=== PATIENT | female | born 1990 | race Two or more races ===

== ENCOUNTER 2016-09-16 21:04 | Emergency (ER) | payer SELFPAY ==
[~2016-09-16 21:04] MED LIST: ADVAIR 1001 DISK W/D; ALBUTEROL17 GM; BACTRIM DS TAB1 EAC2 PO; BACTRIM DS TABL1 TAB; BACTRIM DS TABL1 TAB PO; BREAST PUMP MC; CIPRO500 M2 PO; CIPRO500 MG PO; CIPROFLOXACIN500 M3 PO; COMPAZINE10 M PO; COMPAZINE25 MG/SUPP PR; CYCLOBENZAPRINE5 M1 PO; DICLOFENAC POTA50 M1 PO; FLAGYL500 M1 PO; HYDROCODON-ACE1 EA16 PO; IBUPROFEN400 M1 PO; IRON1 TA1 PO; LEVAQUIN250 MG PO; LEVAQUIN750 M1 PO; LEVAQUIN750 MG; MOTRIN800 MG PO; NO HOME MEDICATION XX; NORCO 5-325 TA1 EACH PO; NORCO 5/325 TAB1 TAB PO; OXYCODONE/APAP PO; PERCOCET 5-3251 EACH PO; PRENACARE TABL1 EACH PO; PRENATAL1 TAB; PROMETHAZINE HC25 M3 PO; PYRIDIUM200 MG; PYRIDIUM200 MG PO; TYLENOL W/CODEI1 TAB; VISTARIL25 MG; ZOFRAN ODT4 MG PO; ZOFRAN4 M2 PO; [UNRECOGNIZED DRUG - REMARK]
[2016-09-16] MEDS ORDERED: PENICILLIN V P500 M1 PO (21:31)
[2017-03-26] MEDS ORDERED: ZOFRAN ODT4 MG PO (13:40)
[2017-03-26] MEDS ORDERED: AUGMENTIN 875-1 EAC2 PO (13:40)
[2017-03-26] MEDS ORDERED: NORCO 5-325 TA1 EACH PO (13:40)
[2017-03-29] MEDS ORDERED: NORCO 5-325 TA1 EACH PO (16:23)
[2017-03-29] MEDS ORDERED: TYLENOL325 M2 PO (16:25)
[2017-03-29] MEDS ORDERED: ZOFRAN4 M2 PO (16:27)
[2017-03-29] MEDS ORDERED: CIPRO500 M2 PO (16:30)
== END 2016-09-16 22:03 ==
LOC: EDMED 21:04
DX: K02.9 Dental caries, unspecified (principal); F41.0 Panic disorder [episodic paroxysmal anxiety]